=== PATIENT | female | born 1995 | race Caucasian/White ===

== ENCOUNTER 2018-06-17 20:02 | Emergency (ER) | payer OTHER ==
[~2018-06-17] VITALS: Ht 172.7 cm; Wt 118.8 kg
[2018-06-17 20:42] LABS: HEMATOCRIT 38.2 % (36.0-46.0); HEMOGLOBIN 13.6 G/DL (11.9-15.5); MCH 32.3 PG (29.0-34.0); MCHC 35.6 G/DL (30.0-36.0); MCV 90.7 FL (83-99); PLATELET COUNT 216 K/uL (156-360); RBC DIS.WIDTH-CV 11.9 % (11.8-14.6); RBC DIS.WIDTH-SD 39.5 % (39-53); RED BLOOD COUNT 4.21 M/uL (3.80-5.20); WHITE BLOOD COUNT 13.7 K/uL (4.1-10.2)
[2018-06-17 20:47] LABS: APPEARANCE CLOUDY ((CLEAR)); BILIRUBIN NEGATIVE; BLOOD NEGATIVE; COLOR YELLOW ((YELLOW)); GLUCOSE (STRIP) NEGATIVE; KETONES NEGATIVE; LEUKOCYTES LARGE; NITRITE NEGATIVE; PROTEIN (STRIP) NEGATIVE; SPECIFIC GRAVITY 1.017 (1.000-1.030); UROBILINOGEN 0.2 MG/DL (0.2-1.0)
[2018-06-17 20:56] LABS: ALBUMIN 4.4 g/dL (3.2-4.8); CHLORIDE 105 mEq/L (99-109); POTASSIUM 3.9 mEq/L (3.7-5.4); SODIUM 140 mEq/L (136-147)
[2018-06-17 20:58] LABS: GLUCOSE 96 mg/dL (70-99)
[2018-06-17 21:00] LABS: TOTAL BILIRUBIN 0.3 mg/dL (0.0-1.0)
[2018-06-17 21:02] LABS: ALKALINE PHOSPHATASE 106 IU/L (3-129); CREATININE 0.9 mg/dL (0.6-1.3); GFR ESTIMATE (CALCULATED) > 59 mL/min/
[2018-06-17 21:03] LABS: UREA NITROGEN (BUN) 18 mg/dL (9-23)
[2018-06-17 21:04] LABS: AST (GOT) 21 IU/L (2-34)
[2018-06-17 21:05] LABS: ALT (GPT) 21 IU/L (3-49); LIPASE 12 U/L (1.0-51.0)
[2018-06-17 21:15] LABS: QUANTITATIVE HCG < 4.0 MIU/ML
[2018-06-17 21:16] LABS: AMORPHOUS URATES CRYSTALS 1+; BACTERIA RARE /HPF; EPITHELIAL CELLS 3+ /HPF; MUCUS TRACE /LPF; RED BLOOD CELLS RARE /HPF (0-5); UCUL ADDED? YES; WHITE BLOOD CELLS 15-20 /HPF (0-5)
[2018-06-17] MEDS ORDERED: KEFLEX500 MG PO (23:34)
[2018-06-17 23:47] VITALS: BP 122/68
== END 2018-06-17 23:47 | disposition home or self-care (01) ==
LOC: EME 20:02
PROVIDERS: Physician Assistant
DX: N39.0 Urinary tract infection, site not specified (principal); R10.31 Right lower quadrant pain; Z88.1 Allergy status to other antibiotic agents
CPT/HCPCS: 74177; 80053; 81003; 83690; 84702; 85027; 87086; 99281; 99284; J0696; J1885; J7030